=== PATIENT | female | born 1975 | race Caucasian/White ===

== ENCOUNTER 2022-05-07 16:30 | Inpatient (IN) ==
[2022-05-07] MEDS ORDERED: HEPARIN/NACL 0.9% 2 UNITS/ML 3,000 UNIT/1,500 ML BAG IV ONE (16:35)
[2022-05-07] MEDS ORDERED: MIDAZOLAM 2 MG/2 ML VIAL ONE (16:37)
[2022-05-07] MEDS ORDERED: fentaNYL 100 MCG/2 ML VIAL ONE (16:37)
[2022-05-07] MEDS ORDERED: EPTIFIBATIDE 20,000 MCG/10 ML VIAL ONE ×2 (17:06→17:07)
[2022-05-07] MEDS ORDERED: EPTIFIBATIDE 75 MG/100 ML BOTTLE IV ONE (17:07)
[2022-05-07] MEDS ORDERED: HEPARIN 5,000 UNIT/1 ML VIAL ONE (17:08)
[2022-05-07] MEDS: EPTIFIBATIDE 75 MG/100 ML BOTTLE IV SCH ×3 (17:12→23:55)
[2022-05-07] MEDS ORDERED: ONDANSETRON 4 MG/2 ML VIAL ONE (17:13)
[2022-05-07] MEDS ORDERED: SODIUM CHLORIDE 0.9% 1,000 ML IV SCH (18:00)
[2022-05-07 18:38] LABS: Basophils # 0.1 10*3/uL (0.0-0.2); Basophils % 0.3 % (0.0-0.8); Eosinophils # 0.1 10*3/uL (0.0-0.87); Eosinophils % 0.4 % (0.00-10.9); Hematocrit 43.4 VOL% (35.7-47.0); Hemoglobin 14.4 GM/DL (12.0-16.0); Immature Granulocytes % 0.7 %; Immature Granulocytes Absolute 0.14 #; Lymphocytes % 9.6 % (21.3-54.2); Mean Corpuscular HGB Conc 33.2 GM/DL (32-36); Mean Corpuscular Volume 91.9 FL (87-102); Mean Platelet Volume 10.6 FL (9.6-12.0); Monocytes # 0.9 10*3/uL (0.11-0.8); Monocytes % 4.3 % (1.7-12.7); Neutrophils % 84.7 % (38.7-73.9); Platelet Count 243 T/CUMM (130-400); Red Blood Count 4.72 MC/CUMM (3.8-5.5); Red Cell Distribution Width 12.3 % (9.3-17.3); White Blood Count 20.7 T/CUMM (4-12)
[2022-05-07 19:00] LABS: Band Neutrophils 1 % (0-10); Eosinophils 1 % (0-10); Lymphocytes 8 % (20-55); Total Cells Counted 100
[2022-05-07 19:03] LABS: Platelet Estimate Normal
[2022-05-07] MEDS: ATORVASTATIN 40 MG TABLET PO SCH (20:09)
[2022-05-07] MEDS: TICAGRELOR 90 MG TABLET PO SCH (20:09)
[2022-05-08 02:03] LABS: Basophils # 0.1 10*3/uL (0.0-0.2); Basophils % 0.4 % (0.0-0.8); Eosinophils # 0.1 10*3/uL (0.0-0.87); Eosinophils % 0.9 % (0.00-10.9); Hematocrit 40.7 VOL% (35.7-47.0); Hemoglobin 13.6 GM/DL (12.0-16.0); Immature Granulocytes % 0.4 %; Immature Granulocytes Absolute 0.05 #; Lymphocytes # 1.7 10*3/uL (1.4-4.0); Lymphocytes % 12.3 % (21.3-54.2); Mean Corpuscular HGB Conc 33.4 GM/DL (32-36); Mean Corpuscular Volume 90.8 FL (87-102); Monocytes # 0.8 10*3/uL (0.11-0.8); Monocytes % 5.6 % (1.7-12.7); Neutrophils % 80.4 % (38.7-73.9); Platelet Count 233 T/CUMM (130-400); Red Blood Count 4.48 MC/CUMM (3.8-5.5); Red Cell Distribution Width 12.5 % (9.3-17.3); White Blood Count 13.5 T/CUMM (4-12)
[2022-05-08 03:03] LABS: Risk Ratio 4.61; VLDL Cholesterol 34.2 MG/DL
[2022-05-08] MEDS: ASPIRIN EC 81 MG TABLET PO SCH (08:17)
[2022-05-08] MEDS: PANTOPRAZOLE 40 MG TABLET PO SCH (08:17)
[2022-05-08] MEDS: TICAGRELOR 90 MG TABLET PO SCH ×2 (08:17→20:34)
[2022-05-08] MEDS ORDERED: MAGNESIUM SULF RIDER 2 GM/50 ML PREMIX IV PRN (10:23)
[2022-05-08] MEDS: SERTRALINE 100 MG TABLET PO SCH (10:44)
[2022-05-08] MEDS: OXYBUTYNIN 5 MG TABLET PO SCH (10:44)
[2022-05-08 10:48] LABS: Albumin 2.6 G/DL (3.4-5.0); Bilirubin,Total 0.4 MG/DL (0.20-1.00); Calcium 8.4 MG/DL (8.5-10.1); Osmolality,Calculated 276.5 MOS/KG (273-304); Potassium 3.8 MMOL/L (3.5-5.1); Total Protein 5.8 G/DL (6.4-8.2)
[2022-05-08] MEDS: POTASSIUM CHLORIDE 20 MEQ TABLET PO PRN (11:42)
[2022-05-08] MEDS: busPIRone 15 MG TABLET PO SCH ×2 (11:42→20:34)
[2022-05-08] MEDS: ATORVASTATIN 40 MG TABLET PO SCH (20:34)
[2022-05-09] MEDS: PANTOPRAZOLE 40 MG TABLET PO SCH (08:26)
[2022-05-09] MEDS: ASPIRIN EC 81 MG TABLET PO SCH (08:26)
[2022-05-09] MEDS: OXYBUTYNIN 5 MG TABLET PO SCH (08:26)
[2022-05-09] MEDS: SERTRALINE 100 MG TABLET PO SCH (08:27)
[2022-05-09] MEDS: TICAGRELOR 90 MG TABLET PO SCH ×2 (08:27→22:03)
[2022-05-09] MEDS: busPIRone 15 MG TABLET PO SCH ×2 (08:27→22:04)
[2022-05-09 09:16] LABS: Basophils % 0.4 % (0.0-0.8); Eosinophils # 0.4 10*3/uL (0.0-0.87); Eosinophils % 4.1 % (0.00-10.9); Hematocrit 43.1 VOL% (35.7-47.0); Hemoglobin 14.1 GM/DL (12.0-16.0); Immature Granulocytes % 0.5 %; Immature Granulocytes Absolute 0.05 #; Lymphocytes # 1.2 10*3/uL (1.4-4.0); Lymphocytes % 11.4 % (21.3-54.2); Mean Corpuscular HGB Conc 32.7 GM/DL (32-36); Mean Corpuscular Volume 92.5 FL (87-102); Mean Platelet Volume 10.1 FL (9.6-12.0); Monocytes # 0.6 10*3/uL (0.11-0.8); Neutrophils % 77.6 % (38.7-73.9); Platelet Count 202 T/CUMM (130-400); Red Blood Count 4.66 MC/CUMM (3.8-5.5); Red Cell Distribution Width 12.4 % (9.3-17.3); White Blood Count 10.7 T/CUMM (4-12)
[2022-05-09 09:34] LABS: Albumin 2.5 G/DL (3.4-5.0); Bilirubin,Total 0.5 MG/DL (0.20-1.00); Calcium 8.6 MG/DL (8.5-10.1); Osmolality,Calculated 273.7 MOS/KG (273-304); Potassium 3.7 MMOL/L (3.5-5.1); Total Protein 6.1 G/DL (6.4-8.2)
[2022-05-09] MEDS: POTASSIUM CHLORIDE 20 MEQ TABLET PO PRN (10:15)
[2022-05-09] MEDS: METOPROLOL SUCCINATE XL 25 MG TABLET PO SCH (11:05)
[2022-05-09] MEDS ORDERED: busPIRone 15 MG TABLET PO SCH (21:00)
[2022-05-09] MEDS ORDERED: ROSUVASTATIN 10 MG TABLET PO SCH (21:00)
[2022-05-09] MEDS: ATORVASTATIN 40 MG TABLET PO SCH (22:03)
[2022-05-10 05:30] LABS: Basophils % 0.4 % (0.0-0.8); Eosinophils # 0.7 10*3/uL (0.0-0.87); Eosinophils % 6.9 % (0.00-10.9); Hematocrit 43.8 VOL% (35.7-47.0); Hemoglobin 14.4 GM/DL (12.0-16.0); Immature Granulocytes % 0.4 %; Immature Granulocytes Absolute 0.04 #; Lymphocytes # 1.2 10*3/uL (1.4-4.0); Lymphocytes % 11.5 % (21.3-54.2); Mean Corpuscular HGB Conc 32.9 GM/DL (32-36); Mean Platelet Volume 10.5 FL (9.6-12.0); Monocytes # 0.6 10*3/uL (0.11-0.8); Monocytes % 6.4 % (1.7-12.7); Neutrophils % 74.4 % (38.7-73.9); Platelet Count 202 T/CUMM (130-400); Red Blood Count 4.76 MC/CUMM (3.8-5.5); Red Cell Distribution Width 12.3 % (9.3-17.3)
[2022-05-10 05:52] LABS: Albumin 2.9 G/DL (3.4-5.0); Bilirubin,Total 0.7 MG/DL (0.20-1.00); Calcium 8.5 MG/DL (8.5-10.1); Osmolality,Calculated 278.4 MOS/KG (273-304); Potassium 3.8 MMOL/L (3.5-5.1); Total Protein 6.4 G/DL (6.4-8.2)
[2022-05-10] MEDS: METOPROLOL SUCCINATE XL 25 MG TABLET PO SCH (08:59)
[2022-05-10] MEDS: busPIRone 15 MG TABLET PO SCH (08:59)
[2022-05-10] MEDS: ASPIRIN EC 81 MG TABLET PO SCH (09:00)
[2022-05-10] MEDS: TICAGRELOR 90 MG TABLET PO SCH (09:00)
[2022-05-10] MEDS ORDERED: NON-FORMULARY MEDICATION (Esomeprazole Magnesium 40 mg capsule,delayed release(DR/EC)) PO SCH (09:00)
[2022-05-10] MEDS: SERTRALINE 100 MG TABLET PO SCH (09:00)
[2022-05-10] MEDS ORDERED: lisinopriL 10 MG TABLET PO SCH (09:00)
[2022-05-10] MEDS: OXYBUTYNIN 5 MG TABLET PO SCH (09:00)
[2022-05-10] MEDS ORDERED: SERTRALINE 100 MG TABLET PO SCH (09:00)
[2022-05-10] MEDS ORDERED: OXYBUTYNIN XL 10 MG TABLET PO SCH (09:00)
[2022-05-10] MEDS: PANTOPRAZOLE 40 MG TABLET PO SCH (09:00)
[2022-05-10 09:43] VITALS: BP 110/75
== END 2022-05-10 11:05 | disposition home or self-care (01) | DRG 247 ==
LOC: N.CC 17:37 → N.TELES 05-09 12:18
PROVIDERS: ADMIT Internal Medicine Cardiovascular Disease; ATTEND Internal Medicine Cardiovascular Disease
PROC: CLCCHCL (ICD-10-PCS; 2022-05-07 16:45)